=== PATIENT | female | born 1965 | race Caucasian/White ===

== ENCOUNTER 2019-03-04 21:49 | Emergency (ER) | payer BC ==
[~2019-03-04] VITALS: Ht 157.5 cm; Wt 63.5 kg
[~2019-03-04 21:49] MED LIST: FLEXERIL; HYDROCODONE-AP1 EAC6 PO; KEFLEX500 MG PO; LOSARTAN POTAS100 MG; LUCIDEX100 MG; XANAX1 MG
[2019-03-04] MEDS ORDERED: HYDROCHLOROTH12.5 M1 (22:00)
[2019-03-04] MEDS ORDERED: BACLOFEN20 MG (22:01)
[2019-03-04 22:23] LABS: ABSOLUTE EOSINOPHILS 0.1 thou/uL (0.0-0.7); ABSOLUTE LYMPHOCYTES 1.5 thou/uL (0.8-5.3); ABSOLUTE MONOCYTES 0.6 thou/uL (0.0-1.2); ABSOLUTE NEUTROPHILS 4.8 thou/uL (1.6-8.1); BASOPHILS 0.6 %; EOSINOPHILS 1.3 %; HEMATOCRIT 38.5 % (37.0-47.0); HEMOGLOBIN 13.5 gm/dL (12.0-15.0); LYMPHOCYTES 21.6 %; MCH 32.4 pg (26.0-34.0); MCHC 34.9 g/dL (28.0-37.0); MCV 92.7 fL (80.0-100.0); MONOCYTES 8.5 %; MPV 7.8 fl. (7.2-11.1); NUCLEATED RBCS 0 /100WBC; PLATELET COUNT* 215 thou/uL (150-400); RBC 4.15 mil/uL (4.20-5.00); RDW-CV 13.8 % (10.5-14.5); WBC 7.1 thou/uL (4.0-11.0)
[2019-03-04 22:26] LABS: CALCIUM 9.6 mg/dL (8.5-10.1); CREATININE 1.2 mg/dL (0.6-1.3); POTASSIUM 3.9 mmol/L (3.5-5.1)
[2019-03-04 22:30] LABS: ALBUMIN 3.8 g/dL (3.4-5.0); TOTAL BILIRUBIN 0.5 mg/dL (<0.1-1.0); TOTAL PROTEIN 8.6 g/dL (6.4-8.2)
[2019-03-05] MEDS ORDERED: CYCLOBENZAPRINE5 MG PO (00:19)
[2019-03-05 00:29] VITALS: BP 120/67
== END 2019-03-05 00:29 | disposition home or self-care (01) ==
LOC: M.ERS 21:49
PROVIDERS: Nurse Practitioner Family
DX: M79.18 Myalgia, other site (principal); M79.662 Pain in left lower leg; F41.9 Anxiety disorder, unspecified; I10 Essential (primary) hypertension; M19.90 Unspecified osteoarthritis, unspecified site; F17.210 Nicotine dependence, cigarettes, uncomplicated; Z90.49 Acquired absence of other specified parts of digestive tract; Z98.890 Other specified postprocedural states

== ENCOUNTER 2019-09-04 01:01 | Emergency (ER) | payer BC ==
[~2019-09-04 01:01] MED LIST changes: +BACLOFEN20 MG; +CYCLOBENZAPRINE5 MG PO; +HYDROCHLOROTH12.5 M1
== END 2019-09-04 02:30 ==
LOC: M.ERS 01:01
DX: Z02.89 Encounter for other administrative examinations (principal)